=== PATIENT | female | born 1965 | race Caucasian/White ===

== ENCOUNTER 2017-02-17 08:54 | Day surgery (SDC) | payer BC ==
[2017-02-16 11:01] LABS: APPEARANCE,URINE CLEAR; BILIRUBIN,URINE NEGATIVE (NEGATIVE); GLUCOSE, URINE NEGATIVE (NEGATIVE); KETONES,URINE NEGATIVE (NEGATIVE); LEUKOCYTE ESTERASE,URINE NEGATIVE (NEGATIVE); NITRITE,URINE NEGATIVE (NEGATIVE); PROTEIN,URINE NEGATIVE (NEGATIVE); URINE SPECIFIC GRAVITY 1.004; UROBILINOGEN,URINE NEGATIVE mg/dL (<2.0)
[2017-02-16 11:04] LABS: HEMOGLOBIN 14.5 g/dL (12.0-15.5); HGB HCT DIFFERENCE -1.5; MEAN CORPUSCULAR HEMOGLOBIN 30.4 pg (27.0-33.4); MEAN CORPUSCULAR HGB CONC 32.1 g/dL (32.0-36.0); MEAN CORPUSCULAR VOLUME 95 fl (80-97); RED BLOOD COUNT 4.75 10^6/uL (3.72-5.28); WHITE BLOOD COUNT 6.1 10^3/uL (4.0-10.5)
[~2017-02-17 08:54] MED LIST: LACTATED RINGERS 1000 ML IV PRN; LIDOCAINE 0.5% INJ-PF (5 MG/ML) 50 ML SDV SUBCUT PRN
[2017-02-17] MEDS ORDERED: SCOPOLAMINE HYDROBROMIDE 1.5 MG PATCH.TD72 ONE (10:23)
[2017-02-17] MEDS ORDERED: MIDAZOLAM 2 MG/2 ML INJ ONE ×2 (10:24→10:39)
[2017-02-17] MEDS ORDERED: FAMOTIDINE INJ/PF 20 MG/2 ML SDV IV ONE ×2 (10:24→10:30)
[2017-02-17] MEDS ORDERED: SCOPOLAMINE HYDROBROMIDE 1.5 MG PATCH.TD72 TD ONE (10:30)
[2017-02-17] MEDS ORDERED: MIDAZOLAM 2 MG/2 ML INJ IV ONE (10:30)
[2017-02-17] MEDS ORDERED: ONDANSETRON HCL INJ/PF 4 MG/2 ML SDV ONE (10:39)
[2017-02-17] MEDS ORDERED: PROPOFOL INJ 200 MG/20 ML VIAL IV ONE (10:39)
[2017-02-17] MEDS ORDERED: FENTANYL CITRATE INJ/PF 100 MCG/2 ML AMPUL ONE (10:39)
[2017-02-17] MEDS ORDERED: ACETAMINOPHEN 100 ML IV ONE (10:40)
[2017-02-17] MEDS ORDERED: PROMETHAZINE HCL INJ 25 MG/1 ML VIAL IV PRN (11:08)
[2017-02-17] MEDS ORDERED: DIPHENHYDRAMINE HCL 50 MG/ML VIAL IV PRN (11:08)
[2017-02-17] MEDS ORDERED: MEPERIDINE HCL/PF INJ 25 MG/1 ML DISP.SYRIN IV PRN (11:08)
[2017-02-17] MEDS ORDERED: MORPHINE SULFATE 10 MG/ML INJ IV PRN (11:08)
[2017-02-17] MEDS ORDERED: FENTANYL CITRATE INJ/PF 100 MCG/2 ML AMPUL IV PRN ×3 (11:08)
--- NOTE | 2017-02-17 11:39 | OPERATIVE REPORT E ---
Operative Report NAME: JENNI COOK : 1965 AGE: 51Y DATE OF SURGERY: 02/17/2017 ROOM: PREOPERATIVE DIAGNOSIS: Postmenopausal bleeding and pelvic pain. POSTOPERATIVE DIAGNOSIS: Postmenopausal bleeding and pelvic pain. PROCEDURE: Hysteroscope with MyoSure endometrial sampling. SURGEON: ARLINE PETTIT M.D. ANESTHESIA: Dr. Pompa with conscious sedation. ESTIMATED BLOOD LOSS: 10 mL. FINDINGS: Atrophic-appearing endometrium. No evidence of polyps or any other lesions in the uterus. Stenotic-appearing cervix. COMPLICATIONS: None. PATHOLOGY: Endometrium. PROCEDURE IN DETAIL: The patient was taken to the operating room, prepared and draped in a normal sterile fashion in the dorsal lithotomy position under sterile conditions. An in-and-out cath was performed of approximately 100 mL of clear urine. A sterile speculum was then placed into the vagina. The cervix was prepped with Betadine and the cervix was grasped on the anterior lip with a single-tooth tenaculum. The cervix was then dilated to accommodate the MyoSure after being sounded to a length of approximately 8 cm. The MyoSure scope was introduced through the cervix and into the endometrial cavity where the above findings were noted. The MyoSure was then inserted through the scope and sampling was taken in a 360-degree manner using the MyoSure device to ensure that a good sampling was obtained secondary to the patient's history. Once this was performed without any difficulty, the instrument was removed and the sterile speculum was removed as well as the tenaculum. The patient tolerated the procedure well. Sponge, lap, and needle counts were correct x2, and the patient was taken to recovery in stable condition and sent home with doxycycline 100 mg p.o. b.i.d. for 5 days as prophylaxis. DICTATING PHYSICIAN: ARLINE PETTIT M.D. [id number] PHY#: [id number] ID: [id number] JOB#: [id number] ACCT: [id number] cc:ARLINE PETTIT M.D. >
[2017-02-17] MEDS ORDERED: MORPHINE SULFATE 10 MG/ML INJ IM PRN (11:52)
[2017-02-17] MEDS ORDERED: OXYCODONE-ACETAMINOPHEN 5-325 MG TABLET PO PRN ×2 (11:53)
[2017-02-17] MEDS ORDERED: IBUPROFEN 800 MG TABLET PO PRN (11:53)
[2017-02-17 13:25] VITALS: BP 125/77
== END 2017-02-17 13:10 | disposition home or self-care (01) ==
LOC: OROUT 08:54
PROVIDERS: ATTEND Obstetrics & Gynecology
PROC: 0UB98ZX Excision of Uterus, Via Natural or Artificial Opening Endoscopic, Diagnostic (ICD-10-PCS; principal; 2017-02-17 10:45)
DX: N95.0 Postmenopausal bleeding (principal); R10.2 Pelvic and perineal pain; N84.0 Polyp of corpus uteri; Z87.891 Personal history of nicotine dependence; Z79.899 Other long term (current) drug therapy
CPT/HCPCS: 36415; 85027; 81025; 81001; 88305 ×2; 58558; J2250; J3010; J2405; J2704; S0028; J0131; 952

== ENCOUNTER → 2019-05-20 | Outpatient (CLI) | payer BC ==
--- NOTE | 2019-05-20 11:47 | RADIOLOGY REPORT (SQ) ---
EXAM DESCRIPTION: HIP RIGHT AP/LATERAL COMPLETED DATE/TIME: 05/20/2019 11:30 am REASON FOR STUDY: PAIN IN RIGHT HIP M25.551 PAIN IN RIGHT HIP COMPARISON: None. NUMBER OF VIEWS: Two views. TECHNIQUE: AP pelvis and additional frog-leg view of the right hip. LIMITATIONS: None. FINDINGS: MINERALIZATION: Normal. RIGHT HIP: No fracture or dislocation. No worrisome bone lesions. Degenerative changes with osteoph ytosis, subchondral sclerosis and mild joint space loss. LEFT HIP: No fracture or dislocation. No worrisome bone lesions. Degenerative changes with mild ost eophytosis. Relatively well-maintained joint spaces. PUBIS AND ISCHIUM: No fracture. PELVIS: No fracture. SACRUM: No fracture or dislocation. No worrisome bone lesions. LOWER LUMBAR SPINE: Lower lumbar facet arthropathy. SOFT TISSUES: No findings. OTHER: No other significant finding. IMPRESSION: No evidence of acute bony abnormality. Mild bilateral hip osteoarthritis, right greater than left TECHNICAL DOCUMENTATION: JOB ID: [id number] [employer]- All Rights Reserved Reading location - IP/workstation name: [email or web address]
== END ==
LOC: OD 10:59
PROVIDERS: ATTEND Physician Assistant
DX: M25.551 Pain in right hip (principal)